=== PATIENT | male | born 1970 | race Caucasian/White ===

== ENCOUNTER 2017-04-22 01:28 | Inpatient (IN) | payer OTHER ==
[~2017-04-22] VITALS: Ht 175.3 cm; Wt 97.5 kg
[2017-04-22 02:16] LABS: Basophils # (auto) 0 uL; Basophils % (auto) 0.6 % (0.0-2.0); Eosinophils # (auto) 0.1 uL; Eosinophils % (auto) 2.1 % (0.0-7.0); Hematocrit 39.6 % (41.0-53.0); Lymphocytes # (auto) 2.3 uL; Lymphocytes % (auto) 34.1 % (10.0-50.0); Mean Corpuscular Hemoglobin 29.3 pg (28.0-32.0); Mean Corpuscular Hgb Conc. 32.8 g/dL (32.0-36.0); Mean Corpuscular Volume 89.4 fL (80.0-100.0); Monocytes # (auto) 0.7 uL; Monocytes % (auto) 10.5 % (0.0-12.0); Neutrophils # (auto) 3.5 uL; Neutrophils % (auto) 52.7 % (37.0-80.0); Nucleated Red Blood Cells % 0.1 %; Platelet Count (auto) 219 10^3/uL (140-450); Red Blood Cells 4.43 10^6/uL (4.5-5.90); Red Cell Distribution Width 13.2 % (11.8-14.3); White Blood Cell 6.6 10^3/uL (4.4-10.8)
[2017-04-22 02:33] LABS: Alanine Aminotransferase 51 U/L (16-61); Albumin 3.3 g/dL (3.4-5.0); Anion Gap 6 (5-15); Aspartate Aminotransferase 80 U/L (15-37); BUN/Creatinine Ratio 11.6; Blood Urea Nitrogen 14 mg/dL (7-18); Calcium 8.7 mg/dL (8.5-10.1); Carbon Dioxide 30 mmol/L (21-32); Chloride 105 mmol/L (98-107); GFR African American 83 mL/min; GFR Non-African American 69 mL/min; Glucose 158 mg/dL (74-106); INR 0.95 (0.9-1.15); Magnesium 2.2 mg/dL (1.6-2.6); Partial Thromboplastin Time 25.4 sec (22.64-33.71); Potassium 4.1 mmol/L (3.5-5.1); Prothrombin Time 10.3 sec (9.37-12.3); Sodium 141 mmol/L (136-145)
[2017-04-22 02:38] LABS: Alkaline Phosphatase 128 U/L (45-117); Bilirubin, Total 0.2 mg/dL (0.2-1.0); Total Protein 7.2 g/dL (6.4-8.2)
[2017-04-22] MEDS: ONDANSETRON HCL 4 MG/2 ML VIAL IV ONE (08:04)
[2017-04-22] MEDS: MORPHINE SULFATE 10 MG/ML INJ 1ML SDV IV ONE (08:04)
[2017-04-22] MEDS: SODIUM CHLORIDE 0.9% 1,000 ML IV ONE (08:04)
[2017-04-22] MEDS: LEVOFLOXACIN 500MG 100 ML IV ONE ×2 (08:05→08:08)
[2017-04-22] MEDS: SODIUM CHLORIDE 0.9% 1,000 ML IV SCH ×2 (08:48→22:08)
[2017-04-22] MEDS ORDERED: MORPHINE SULFATE 10 MG/ML INJ 1ML SDV IV PRN ×2 (09:00)
[2017-04-22] MEDS ORDERED: LORazepam 0.5 MG TAB PO PRN (09:00)
[2017-04-22] MEDS ORDERED: ALBUTEROL SULF 2.5 MG/0.5ML(0.5%) NEB SOLN NEB PRN (09:00)
[2017-04-22] MEDS ORDERED: LACTULOSE 20Gm/30ML SOLN PO PRN (09:00)
[2017-04-22] MEDS ORDERED: PROMETHAZINE HCL 25 MG/ML 1ML IV PRN (09:00)
[2017-04-22] MEDS ORDERED: NITROGLYCERIN 0.4 MG SL TAB SL PRN (09:00)
[2017-04-22] MEDS ORDERED: ACETAMINOPHEN 500 MG TAB PO PRN (09:00)
[2017-04-22] MEDS ORDERED: DEXTROSE (50%) 50ML SYRG IV PRN (09:00)
[2017-04-22] MEDS: cefTRIAXone 1GM/50ML D5W 50 ML IV SCH (09:11)
[2017-04-22] MEDS: AZITHROMYCIN 500MG/ 250ML 250 ML IV SCH (09:52)
[2017-04-22 09:54] VITALS: BP 113/74
[2017-04-22] MEDS: ENOXAPARIN SOD 40 MG/0.4 ML SYRINGE SC SCH (09:55)
[2017-04-22] MEDS: ASPirin 81 mg TAB PO SCH (09:55)
[2017-04-22] MEDS: FAMOTIDINE 20 MG TAB PO SCH ×2 (09:55→22:00)
[2017-04-22] MEDS ORDERED: NITROGLYCERIN 0.2MG/HR TOPICAL PATCH TD SCH (10:00)
[2017-04-22] MEDS ORDERED: METOPROLOL TARTRATE 25 MG TAB PO SCH (10:00)
[2017-04-22 10:02] VITALS: BP 124/81
[2017-04-22 11:38] LABS: CRP High Sensitivity 0.78 mg/dL (< 0.3)
[2017-04-22] MEDS: ACCU-CHEK COMFORT CURVE STRIP VI SCH ×3 (11:38→22:00)
[2017-04-22] MEDS: HYDROcodone-ACET 5/325MG TAB PO PRN ×2 (11:50→19:28)
[2017-04-22] MEDS: InsuLIN REG 1unit/0.01ml Soln (100units/ml) SC SCH ×3 (11:51→22:00)
[2017-04-22] MEDS: ALBUTEROL SULF 2.5 MG/0.5ML(0.5%) NEB SOLN NEB SCH (13:50)
[2017-04-22] MEDS: IPRATROPIUM BROM 0.5 MG/2.5ML INH SOL NEB SCH (13:50)
[2017-04-22] MEDS ORDERED: IBUPROFEN 600 MG TAB PO PRN (15:00)
[2017-04-22 21:41] VITALS: BP 117/67
[2017-04-22] MEDS ORDERED: ATORVASTATIN 20 MG TAB PO SCH (22:00)
[2017-04-22 22:40] LABS: Alcohol, Urine < 3.0 mg/dL (0-5); Amphetamine Screen, Urine NEGATIVE (NEGATIVE); Barbiturate Scree,Urine NEGATIVE (NEGATIVE); Benzodiazephine Screen, Urine NEGATIVE (NEGATIVE); Cannabinoid Screen, Urine NEGATIVE (NEGATIVE); Cocaine Screen, Urine NEGATIVE (NEGATIVE); Opiate Scree,Urine POSITIVE (NEGATIVE); Phencyclidine Screen, Urine NEGATIVE (NEGATIVE)
[2017-04-23] MEDS: ALBUTEROL SULF 2.5 MG/0.5ML(0.5%) NEB SOLN NEB SCH ×5 (00:23→20:12)
[2017-04-23] MEDS: IPRATROPIUM BROM 0.5 MG/2.5ML INH SOL NEB SCH ×5 (00:23→20:12)
[2017-04-23] MEDS: HYDROcodone-ACET 5/325MG TAB PO PRN ×2 (03:41→09:30)
[2017-04-23 05:45] VITALS: BP 107/80
[2017-04-23] MEDS: ACCU-CHEK COMFORT CURVE STRIP VI SCH ×4 (06:25→21:39)
[2017-04-23] MEDS: InsuLIN REG 1unit/0.01ml Soln (100units/ml) SC SCH ×4 (06:25→21:39)
[2017-04-23 06:48] LABS: Basophils # (auto) 0 uL; Basophils % (auto) 0.3 % (0.0-2.0); Eosinophils # (auto) 0.2 uL; Eosinophils % (auto) 2.5 % (0.0-7.0); Hematocrit 36.1 % (41.0-53.0); Hemoglobin 11.9 g/dL (13.5-17.5); Lymphocytes # (auto) 2.8 uL; Lymphocytes % (auto) 32.3 % (10.0-50.0); Mean Corpuscular Hemoglobin 29.7 pg (28.0-32.0); Mean Corpuscular Volume 89.9 fL (80.0-100.0); Monocytes # (auto) 0.7 uL; Monocytes % (auto) 8.4 % (0.0-12.0); Neutrophils # (auto) 4.9 uL; Neutrophils % (auto) 56.5 % (37.0-80.0); Nucleated Red Blood Cells % 0.1 %; Platelet Count (auto) 191 10^3/uL (140-450); Red Blood Cells 4.01 10^6/uL (4.5-5.90); Red Cell Distribution Width 13.3 % (11.8-14.3); White Blood Cell 8.7 10^3/uL (4.4-10.8)
[2017-04-23 07:18] LABS: Albumin 2.9 g/dL (3.4-5.0); Bilirubin, Total 0.4 mg/dL (0.2-1.0); Calcium 8.2 mg/dL (8.5-10.1); Potassium 4.3 mmol/L (3.5-5.1); Total Protein 6.3 g/dL (6.4-8.2)
[2017-04-23] MEDS: cefTRIAXone 1GM/50ML D5W 50 ML IV SCH (08:33)
[2017-04-23 09:10] VITALS: BP 110/80
[2017-04-23] MEDS: AZITHROMYCIN 500MG/ 250ML 250 ML IV SCH (09:28)
[2017-04-23] MEDS: FAMOTIDINE 20 MG TAB PO SCH ×2 (09:28→21:38)
[2017-04-23] MEDS: ASPirin 81 mg TAB PO SCH (09:29)
[2017-04-23] MEDS: ENOXAPARIN SOD 40 MG/0.4 ML SYRINGE SC SCH (10:00)
[2017-04-23] MEDS: SODIUM CHLORIDE 0.9% 1,000 ML IV SCH (11:43)
[2017-04-23] MEDS ORDERED: LORA-622 PO (12:46)
[2017-04-23] MEDS ORDERED: GLIP-115 PO (12:46)
[2017-04-23] MEDS ORDERED: NAP500T PO (12:46)
[2017-04-23] MEDS ORDERED: ATOR10TA PO (12:46)
[2017-04-23] MEDS ORDERED: MULT-424 OR (12:46)
[2017-04-23] MEDS ORDERED: ALLO300T2 PO (12:46)
[2017-04-23] MEDS ORDERED: POM (12:46)
[2017-04-23] MEDS ORDERED: RANI1TAB6 PO (12:46)
[2017-04-23] MEDS ORDERED: METH500T6 PO (12:46)
[2017-04-23] MEDS ORDERED: ASP81EC PO (12:46)
[2017-04-23 12:49] VITALS: BP 123/77
[2017-04-23 16:44] VITALS: BP 134/78
[2017-04-23 22:00] VITALS: BP 129/95
[2017-04-24] MEDS: IPRATROPIUM BROM 0.5 MG/2.5ML INH SOL NEB SCH ×4 (00:54→18:50)
[2017-04-24] MEDS: ALBUTEROL SULF 2.5 MG/0.5ML(0.5%) NEB SOLN NEB SCH ×4 (00:54→18:50)
[2017-04-24] MEDS: SODIUM CHLORIDE 0.9% 1,000 ML IV SCH ×2 (01:55→14:08)
[2017-04-24 05:45] LABS: Basophils # (auto) 0 uL; Basophils % (auto) 0.5 % (0.0-2.0); Eosinophils # (auto) 0.2 uL; Eosinophils % (auto) 3.5 % (0.0-7.0); Hematocrit 36.3 % (41.0-53.0); Hemoglobin 12.2 g/dL (13.5-17.5); Lymphocytes # (auto) 2.3 uL; Lymphocytes % (auto) 36.5 % (10.0-50.0); Mean Corpuscular Hemoglobin 30.1 pg (28.0-32.0); Mean Corpuscular Hgb Conc. 33.7 g/dL (32.0-36.0); Mean Corpuscular Volume 89.4 fL (80.0-100.0); Monocytes # (auto) 0.6 uL; Monocytes % (auto) 9.5 % (0.0-12.0); Neutrophils # (auto) 3.1 uL; Nucleated Red Blood Cells % 0.2 %; Platelet Count (auto) 193 10^3/uL (140-450); Red Blood Cells 4.06 10^6/uL (4.5-5.90); Red Cell Distribution Width 13.2 % (11.8-14.3); White Blood Cell 6.3 10^3/uL (4.4-10.8)
[2017-04-24 05:50] VITALS: BP 124/67
[2017-04-24 05:55] LABS: Calcium 8.3 mg/dL (8.5-10.1); Potassium 3.9 mmol/L (3.5-5.1)
[2017-04-24 05:58] LABS: BUN/Creatinine Ratio 8.8
[2017-04-24] MEDS: ACCU-CHEK COMFORT CURVE STRIP VI SCH ×4 (06:27→22:18)
[2017-04-24] MEDS: InsuLIN REG 1unit/0.01ml Soln (100units/ml) SC SCH ×4 (06:28→22:00)
[2017-04-24 08:00] VITALS: BP 125/73
[2017-04-24 09:00] VITALS: BP 125/73
[2017-04-24] MEDS: cefTRIAXone 1GM/50ML D5W 50 ML IV SCH (09:03)
[2017-04-24] MEDS: ENOXAPARIN SOD 40 MG/0.4 ML SYRINGE SC SCH (10:28)
[2017-04-24] MEDS: AZITHROMYCIN 500MG/ 250ML 250 ML IV SCH (10:28)
[2017-04-24] MEDS: ASPirin 81 mg TAB PO SCH (10:28)
[2017-04-24] MEDS: FAMOTIDINE 20 MG TAB PO SCH ×2 (10:28→22:18)
[2017-04-24] MEDS: HYDROcodone-ACET 5/325MG TAB PO PRN ×2 (11:45→20:02)
[2017-04-24 13:00] VITALS: BP 126/80
[2017-04-24 22:00] VITALS: BP 125/78
[2017-04-25] VITALS (8 sets, daily range): BP systolic 117–141; BP diastolic 70–86
[2017-04-25] MEDS: IPRATROPIUM BROM 0.5 MG/2.5ML INH SOL NEB SCH ×4 (01:01→19:44)
[2017-04-25] MEDS: ALBUTEROL SULF 2.5 MG/0.5ML(0.5%) NEB SOLN NEB SCH ×4 (01:01→19:44)
[2017-04-25] MEDS: TEMAZEPAM 15 MG CAP PO PRN (01:27)
[2017-04-25] MEDS: SODIUM CHLORIDE 0.9% 1,000 ML IV SCH ×2 (04:25→16:48)
[2017-04-25 05:54] LABS: Basophils # (auto) 0 uL; Basophils % (auto) 0.5 % (0.0-2.0); Eosinophils # (auto) 0.3 uL; Eosinophils % (auto) 5.7 % (0.0-7.0); Hematocrit 38.9 % (41.0-53.0); Hemoglobin 13.2 g/dL (13.5-17.5); Lymphocytes # (auto) 2.4 uL; Lymphocytes % (auto) 42.7 % (10.0-50.0); Mean Corpuscular Hemoglobin 30.3 pg (28.0-32.0); Mean Corpuscular Volume 89.1 fL (80.0-100.0); Monocytes # (auto) 0.5 uL; Monocytes % (auto) 8.9 % (0.0-12.0); Neutrophils # (auto) 2.4 uL; Neutrophils % (auto) 42.2 % (37.0-80.0); Nucleated Red Blood Cells % 0.1 %; Platelet Count (auto) 206 10^3/uL (140-450); Red Blood Cells 4.37 10^6/uL (4.5-5.90); Red Cell Distribution Width 13.1 % (11.8-14.3); White Blood Cell 5.7 10^3/uL (4.4-10.8)
[2017-04-25 06:13] LABS: BUN/Creatinine Ratio 12.6; Calcium 8.9 mg/dL (8.5-10.1); Potassium 4.1 mmol/L (3.5-5.1)
[2017-04-25] MEDS: ACCU-CHEK COMFORT CURVE STRIP VI SCH ×4 (06:27→22:25)
[2017-04-25] MEDS: InsuLIN REG 1unit/0.01ml Soln (100units/ml) SC SCH ×4 (06:33→22:00)
[2017-04-25] MEDS: cefTRIAXone 1GM/50ML D5W 50 ML IV SCH (08:29)
[2017-04-25] MEDS: ENOXAPARIN SOD 40 MG/0.4 ML SYRINGE SC SCH (09:38)
[2017-04-25] MEDS: AZITHROMYCIN 500MG/ 250ML 250 ML IV SCH (09:39)
[2017-04-25] MEDS: FAMOTIDINE 20 MG TAB PO SCH ×2 (09:39→22:26)
[2017-04-25] MEDS: HYDROcodone-ACET 5/325MG TAB PO PRN (09:39)
[2017-04-25] MEDS: ASPirin 81 mg TAB PO SCH (09:39)
[2017-04-26] MEDS: ALBUTEROL SULF 2.5 MG/0.5ML(0.5%) NEB SOLN NEB SCH ×4 (00:02→19:52)
[2017-04-26] MEDS: IPRATROPIUM BROM 0.5 MG/2.5ML INH SOL NEB SCH ×4 (00:02→19:52)
[2017-04-26] MEDS: TEMAZEPAM 15 MG CAP PO PRN (00:59)
[2017-04-26] MEDS: SODIUM CHLORIDE 0.9% 1,000 ML IV SCH ×2 (05:34→23:00)
[2017-04-26 05:47] VITALS: BP 124/86
[2017-04-26] MEDS: ACCU-CHEK COMFORT CURVE STRIP VI SCH ×4 (06:10→22:15)
[2017-04-26] MEDS: InsuLIN REG 1unit/0.01ml Soln (100units/ml) SC SCH ×4 (06:11→22:15)
[2017-04-26 09:00] VITALS: BP 109/82
[2017-04-26] MEDS: FAMOTIDINE 20 MG TAB PO SCH ×2 (10:35→22:00)
[2017-04-26] MEDS: cefTRIAXone 1GM/50ML D5W 50 ML IV SCH (10:35)
[2017-04-26] MEDS: ASPirin 81 mg TAB PO SCH (10:35)
[2017-04-26] MEDS: ENOXAPARIN SOD 40 MG/0.4 ML SYRINGE SC SCH (10:36)
[2017-04-26] MEDS ORDERED: CYANOCOBALAMIN (B-12) 1000 MCG/1 ML VIAL IM ONE (11:00)
[2017-04-26 11:55] LABS: Folate (Folic Acid) 16.11 ng/mL (5.38-24)
[2017-04-26 13:06] VITALS: BP 118/65
[2017-04-26] MEDS: AZITHROMYCIN 500MG/ 250ML 250 ML IV SCH (13:33)
[2017-04-26] MEDS: HYDROcodone-ACET 5/325MG TAB PO PRN ×2 (16:55→20:19)
[2017-04-26 17:00] VITALS: BP 124/73
[2017-04-26 22:00] VITALS: BP 109/89
[2017-04-27] MEDS: ALBUTEROL SULF 2.5 MG/0.5ML(0.5%) NEB SOLN NEB SCH ×2 (01:22→06:59)
[2017-04-27] MEDS: IPRATROPIUM BROM 0.5 MG/2.5ML INH SOL NEB SCH ×2 (01:22→06:59)
[2017-04-27 05:00] VITALS: BP 134/79
[2017-04-27] MEDS: ACCU-CHEK COMFORT CURVE STRIP VI SCH (06:43)
[2017-04-27] MEDS: InsuLIN REG 1unit/0.01ml Soln (100units/ml) SC SCH (06:43)
[2017-04-27 08:32] VITALS: BP 120/80
[2017-04-27 09:00] VITALS: BP 127/77
== END 2017-04-27 11:30 | disposition home or self-care (01) | DRG 203 ==
LOC: ER 01:37 → TELE-WESTW 01:38 → WEST WING 04-25 23:40
PROVIDERS: ADMIT Internal Medicine; ATTEND Family Medicine
DX: R07.89 Other chest pain (principal); J18.9 Pneumonia, unspecified organism; E11.22 Type 2 diabetes mellitus with diabetic chronic kidney disease; E11.65 Type 2 diabetes mellitus with hyperglycemia; N18.3 Chronic kidney disease, stage 3 (moderate); M51.36 Other intervertebral disc degeneration, lumbar region; E78.5 Hyperlipidemia, unspecified; F33.9 Major depressive disorder, recurrent, unspecified; J45.909 Unspecified asthma, uncomplicated; M10.9 Gout, unspecified; F41.9 Anxiety disorder, unspecified; G47.00 Insomnia, unspecified; K59.00 Constipation, unspecified; Z90.49 Acquired absence of other specified parts of digestive tract; Z90.89 Acquired absence of other organs
CPT/HCPCS: 36415; 71010; 74176; 80048; 80053; 80061; 80307; 82270; 82550; 82607; 82746; 82962; 83036; 83735; 83880; 84484; 85025; 85379; 85610; 85652; 85730; 86141; 93005; 94640; 96365; 96375; 97163; 99291; J0696; J1815; J1956; J2405